=== PATIENT | male | born 1960 | race Two or more races ===

== ENCOUNTER 2025-01-05 10:37 | Inpatient (IN) | payer OTHER, MEDICAID ==
[~2025-01-05] VITALS: Ht 185.4 cm; Wt 91.4 kg
--- NOTE | 2025-01-05 10:48 | ED.PDOC ---
History of Present Illness HPI Comments 64 year old male brought in via EMS presents to the ED with a chief complaint of hypertension onset today. Per EMS, patient was visited by adult protective services, patient was experiencing generalized weakness and 911 was called. Patient states he has not been able to take medication for the past few weeks. Upon ED arrival BP was 215/139. PMHx CVA with LT sided weakness. Denies chest pain, shortness of breath, dizziness, headache, nausea, vomiting, diarrhea. No other symptoms or modifying factors present at this time. Chief Complaint: High Blood Pressure Time Seen by MD: 10:37 Reviewed Notes: Medications, Allergies Allergies: Coded Allergies: NO KNOWN ALLERGIES (Unverified , 01/05/25) Information Source: Patient, Emergency Med Personnel Mode of Arrival: EMS Severity: Moderate Timing: Hours Duration: Since onset Prehospital treatment: None Past Medical History PAST MEDICAL HISTORY: CVA, HTN Surgical History: Denies all surgeries Family History Family History: Reviewed,noncontributory to illness, No family hx of Cancer, No family hx of DM, No family hx of Heart evonne, No family hx of HTN, No family hx ofKidney evonne, No family hx of Liver evonne, No family hx of Lung evonne, No family hx of Stroke Social History Smoker: Non-Smoker Alcohol: Denies ETOH Use Drugs: Denies Drug Use Lives In: Home Constitutional: reports: weakness; denies: chills, diaphoresis, fatigue, fever, malaise, sweats, others EENTM: denies: blurred vision, double vision, ear bleeding, ear discharge, ear drainage, ear pain, ear ringing, eye pain, eye redness, hearing loss, mouth pain, mouth swelling, nasal discharge, nose bleeding, nose congestion, nose pain, photophobia, tearing, throat pain, throat swelling, voice changes, others Respiratory: denies: cough, hemoptysis, orthopnea, SOB at rest, shortness of breath, SOB with excertion, stridor, wheezing, others Cardiovascular: reports: others (Hypertension); denies: chest pain, dizzy spells, diaphoresis, Dyspnea on exertion, edema, irregular heart beat, left arm pain, lightheadedness, palpitations, PND, syncope Gastrointestinal: denies: abdomen distended, abdominal pain, blood streaked bowels, constipated, diarrhea, dysphagia, difficulty swallowing, hematemesis, melena, nausea, poor appetite, poor fluid intake, rectal bleeding, rectal pain, vomiting, others Genitourinary: denies: burning, dysuria, flank pain, frequency, hematuria, incontinence, penile discharge, penile sore, pain, testicle pain, testicle swelling, urgency, others Neurological: reports: weakness; denies: dizziness, fainting, headache, left sided numbness, left sided weakness, numbness, paresthesia, pre-existing deficit, right sided numbness, right sided weakness, seizure, speech problems, tingling, tremors, others Musculoskeletal: denies: back pain, gout, joint pain, joint swelling, muscle pain, muscle stiffness, neck pain, others Integumetry: denies: bruises, change in color, change in hair/nails, dryness, laceration, lesions, lumps, rash, wounds, others Allergic/Immunocompromised: denies: Difficulty Healing, Frequent Infections, Hives, Itching, others Hematologic/Lymphatic: denies: anemia, blood clots, easy bleeding, easy bruising, swollen glands, others Endocrine: denies: excessive hunger, excessive sweating, excessive thirst, excessive urination, flushing, intolerance to cold, intolerance to heat, unexplained weight gain, unexplained weight loss, others Psychiatric: denies: anxiety, bipolar disorder, depression, hopeless, panic disorder, schizophrenia, sleepless, suicidal, others All Other Systems: Reviewed and Negative Physical Exam General Appearance: Moderate Distress, Normal HEENT: Normal ENT Inspection, Pharynx Normal, TMs Normal Neck: Full Range of Motion, Non-Tender, Normal, Normal Inspection Respiratory: Chest Non-Tender, Lungs Clear, No Accessory Muscle Use, No Respiratory Distress, Normal Breath Sounds Cardiovascular: No Edema, No JVD, No Murmur, No Gallop, Normal Peripheral Pulses, Regular Rate/Rhythm Breast Exam: Deferred Gastrointestinal: No Organomegaly, Non Tender, No Pulsatile Mass, Normal Bowel Sounds, Soft Genitalia: Deferred Pelvic: Deferred Rectal: Deferred Extremities: Decreased range of motion (Left upper lower extremity), No calf tenderness, Normal capillary refill, Non-tender, No pedal edema Musculoskeletal : Apperance: Normal Neurologic: Alert, Motor Weakness (Left upper lower extremity), Speech Problem Cerebellar Function: NOT DONE Reflexes: NOT DONE Skin: Dry, Normal Color, Warm Peripheral Pulses: 3+ Radial (R), 3+ Radial (L) Lymphatic: No Adenopathy Was a procedure done? Was a procedure done?: No Differential Dx Considerations may include: Hypertension Electrolyte imbalance X-Ray, Labs, Meds, VS Vital Signs Date Time Temp Pulse Resp B/P (MAP) Pulse Ox O2 Delivery O2 Flow Rate FiO2 01/05/25 16:00 98.3 60 16 163/92 (115) 95 98.3 01/05/25 13:00 98.2 72 12 151/94 (113) 94 98.2 01/05/25 11:14 60 18 96 Room Air* 0 21 01/05/25 11:14 98.5 60 18 144/79 (100) 96 98.5 01/05/25 10:46 64 01/05/25 10:44 98.5 64 18 215/139 (164) 97 98.5 Lab Test 01/05/25 11:04 01/05/25 01:58 Range/Units White Blood Count 4.8 4.4-10.8 10^3/uL Red Blood Count 4.81 4.5-5.90 10^6/uL Hemoglobin 14.9 13.5-17.5 g/dL Hematocrit 44.0 41.0-53.0 % Mean Corpuscular Volume 91.5 80.0-100.0 fL Mean Corpuscular Hemoglobin 30.9 28.0-32.0 pg Mean Corpuscular Hemoglobin Concent 33.8 32.0-36.0 g/dL Red Cell Distribution Width 13.2 11.8-14.3 % Platelet Count 216 140-450 10^3/uL Mean Platelet Volume 8.6 6.9-10.8 fL Neutrophils (%) (Auto) 47.6 37.0-80.0 % Lymphocytes (%) (Auto) 39.0 10.0-50.0 % Monocytes (%) (Auto) 10.4 0.0-12.0 % Eosinophils (%) (Auto) 2.1 0.0-7.0 % Basophils (%) (Auto) 0.9 0.0-2.0 % Neutrophils # (Auto) 2.3 1.6-8.6 10 ^3/uL Lymphocytes # (Auto) 1.9 0.4-5.4 10 ^3/uL Monocytes # (Auto) 0.5 0-1.3 10 ^3/uL Eosinophils # (Auto) 0.1 0-0.8 10 ^3/uL Basophils # (Auto) 0 0-0.2 10 ^3/uL Nucleated Red Blood Cells 0.4 % Sodium Level 138 136-145 mmol/L Potassium Level 3.8 3.5-5.1 mmol/L Chloride Level 105 98-107 mmol/L Carbon Dioxide Level 26 20-31 mmol/L Anion Gap 7 5-15 Blood Urea Nitrogen 12 9-23 mg/dL Creatinine 1.12 0.700-1.30 mg/dL Glomerular Filtration Rate Calc 74 >90 mL/min BUN/Creatinine Ratio 10.7 10.0-20.0 Serum Glucose 83 74-106 mg/dL Calcium Level 9.4 8.7-10.4 mg/dL Troponin I High Sensitivity 39 </=54 ng/L Urine Color Light-yellow Yellow Urine Clarity Clear Clear Urine pH 6.5 5.0-9.0 Urine Specific [place] 1.014 1.001-1.035 Urine Protein 2+ H Negative Urine Ketones Negative Negative Urine Blood Trace H Negative /uL Urine Nitrite Negative Negative Urine Bilirubin Negative Negative Urine Urobilinogen Normal Negative mg/dL Urine Leukocyte Esterase Negative Negative /uL Urine RBC 1 0 - 3 /hpf Urine Microscopic WBC 1 0-3 /HPF Urine Squamous Epithelial Cells Few <5 /hpf Urine Bacteria Few H None Seen /hpf Urine Sperm Present None Seen /hpf Urine Glucose Normal Normal mg/dL Patient history of dementia. Vitals stable. No sign of injury. Blood pressure elevated. Hemoglobin within normal limits. Reviewed his history. Urinalysis shows proteinuria. Microalbuminuria. Cardiac marker within normal limits. History of CVA affecting his speech. Continues to have weakness. Possibly will need MRI. Family states that he has been feeling weak. Has had many CVS. His has left-sided got affected. Explained to the patient. Continue to monitor. EKG reviewed does not show any acute process. Time of 1ST Reevaluation: 11:07 Reevaluation 1ST: Unchanged Patient Education/Counseling: Diagnosis, Treatment, Prognosis Family Education/Counseling: No Family Present Departure 1 Departure Time of Disposition: 11:41 Impression: Primary Impression: TIA (transient ischemic attack) Additional Impression: Hypertensive urgency Disposition: ADMITTED INPATIENT Admit to: Med Surg Condition: Guarded Critical Care Note Critical Care Time?: Yes (45 min-critical care time only) Stability Stability form required: No Heart Score Heart Score: Heart Score Response (Comments) Value History Slightly Suspicious 0 EKG Normal 0 Age 45-64 1 Risk Factors >3 or Hx ASHD 2 Troponin Normal limit 0 Total 3 I personally scribed for MELIZA MUÑOZ MD ([email or web address]) on 01/05/25 at 10:48. Electronically submitted by Awa Combs ([email or web address]). MELIZA MUÑOZ MD Jan 05, 2025 10:48
[2025-01-05 11:14] VITALS: PULSE 60; RESP 18; O2SAT 96
[2025-01-05 11:31] LABS: Basophils # (auto) 0 10 ^3/uL (0-0.2); Basophils % (auto) 0.9 % (0.0-2.0); Eosinophils # (auto) 0.1 10 ^3/uL (0-0.8); Eosinophils % (auto) 2.1 % (0.0-7.0); Hemoglobin 14.9 g/dL (13.5-17.5); Lymphocytes # (auto) 1.9 10 ^3/uL (0.4-5.4); Mean Corpuscular Hemoglobin 30.9 pg (28.0-32.0); Mean Corpuscular Hgb Conc. 33.8 g/dL (32.0-36.0); Mean Corpuscular Volume 91.5 fL (80.0-100.0); Monocytes # (auto) 0.5 10 ^3/uL (0-1.3); Monocytes % (auto) 10.4 % (0.0-12.0); Neutrophils # (auto) 2.3 10 ^3/uL (1.6-8.6); Neutrophils % (auto) 47.6 % (37.0-80.0); Nucleated Red Blood Cells % 0.4 %; Platelet Count (auto) 216 10^3/uL (140-450); Red Blood Cells 4.81 10^6/uL (4.5-5.90); Red Cell Distribution Width 13.2 % (11.8-14.3); White Blood Cell 4.8 10^3/uL (4.4-10.8)
[2025-01-05 11:43] LABS: Anion Gap 7 (5-15); Carbon Dioxide 26 mmol/L (20-31); Chloride 105 mmol/L (98-107); Potassium 3.8 mmol/L (3.5-5.1); Sodium 138 mmol/L (136-145)
[2025-01-05 11:44] LABS: Calcium 9.4 mg/dL (8.7-10.4)
[2025-01-05 11:48] LABS: Urine Bacteria FEW /hpf (None Seen); Urine Blood TRACE /uL (Negative); Urine Clarity Clear (Clear); Urine Color Light-Yellow (Yellow); Urine Protein, UAD 2+ (Negative); Urine Specific Gravity 1.014 (1.001-1.035); Urine Sperm PRESENT /hpf (None Seen); Urine Squamous Epithelial Cell FEW /hpf (<5); Urine Urobilinogen Normal (Negative); Urine WBC 1 /HPF (0-3); Urine pH 6.5 (5.0-9.0)
[2025-01-05 11:49] LABS: BUN/Creatinine Ratio 10.7 (10.0-20.0); Blood Urea Nitrogen 12 mg/dL (9-23); Glucose 83 mg/dL (74-106)
--- NOTE | 2025-01-05 12:13 | ECG ---
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
--- NOTE | 2025-01-05 17:57 | DVH ---
EXAM: CT HEAD WITHOUT CONTRAST INDICATION: tia TECHNIQUE: CT of the head without intravenous contrast. Radiation Dose : 1. Head: CT Dose: CTDI volume is 64.2 mGy. Dose-length product is 1264.7 mGy*cm The dose indicators for CT are the volume Computed Tomography (CT) Dose Index (CTDIvol) and the Dose Length Product (DLP), and are measured in units of mGy and mGy-cm, respectively. These indicators are not patient dose, but values generated from the CT scanner acquisition factors. The report includes radiation exposure data for exposures received during this examination. COMPARISON: None FINDINGS: There is an old infarct of the deep right temporal lobe. Mild dilatation of the right lateral ventric le compensatory in nature. Encephalomalacia seen in both frontal lobes, right greater than left. There is no evidence of acute intracranial hemorrhage, extra-axial collection, mass effect, midline s hift, herniation or hydrocephalus. The ventricles, sulci and cisterns are age appropriate. The stone-white differentiation is intact. Patchy periventricular and subcortical white matter hypoattenuation is nonspecific but may be related to small vessel ischemic disease. The visualized paranasal sinuses and mastoid air cells are clear. The surrounding soft tissues and osseous structures are unremarkable. IMPRESSION: 1. Old right deep temporal lobe infarct.Moderately Severe small-vessel ischemic changes both cerebral hemispheres. Bifrontal old encephalomalacia Radiation optimization: All CT scans at this facility use at least one of these dose optimization jalil hniques: automated exposure control mA and/or kV adjustment per patient size (includes targeted exam s where dose is matched to clinical indication) or iterative reconstruction.
[2025-01-05] MEDS ORDERED: ACETAMINOPHEN 325 MG TAB PO PRN (19:00)
[2025-01-05] MEDS ORDERED: ONDANSETRON HCL 4 MG/2 ML VIAL IV PRN (19:00)
[2025-01-05 20:43] VITALS: PULSE 66; RESP 19; O2SAT 94
[2025-01-05 21:59] VITALS: BP 159/89; PULSE 55; RESP 16; TEMP 97.8; O2SAT 94
--- NOTE | 2025-01-05 22:34 | DVHHP2 ---
History of Present Illness Reason for Visit: Dizziness History of Present Illness 64-year-old presents for evaluation of dizziness. Patient reports a one day history of dizziness. Adult protective Services were doing a wellness check in the patient a noted his blood pressure being over 200. EMS was called to bring the patient in for evaluation. Patient has a history of CVA with left-sided deficits. Patient reports not taking his medications over the past three weeks. Denies chest pain or shortness for breath. No other acute complaints reported. Past Medical History Hypertension and CVA Past Surgical History None Family History Noncontributory Smoke: No ALCOHOL: none Drugs: None Review of Systems Review of Systems Review of systems are currently negative otherwise addressed in HPI. Allergies: Coded Allergies: NO KNOWN ALLERGIES (Unverified , 01/05/25) Medications Current Medications Medications Dose Ordered Sig/Jennifer Route Start Time Stop Time Status Last Admin Dose Admin Aspirin 81 mg DAILY PO 01/06/25 10:00 Atorvastatin Calcium 10 mg HS PO 01/05/25 22:00 Lisinopril 10 mg DAILY PO 01/06/25 10:00 Clonidine HCl 0.1 mg Q6HP PRN PO 01/05/25 19:00 Ondansetron HCl 4 mg Q4HP PRN IV 01/05/25 19:00 Enoxaparin Sodium 40 mg DAILY SC 01/06/25 10:00 Acetaminophen 650 mg Q6HP PRN PO 01/05/25 19:00 Exam Vital Signs Vital Signs Date Time Temp Pulse Resp B/P (MAP) Pulse Ox O2 Delivery O2 Flow Rate FiO2 01/05/25 21:41 98.8 68 16 144/88 (106) 97 98.8 01/05/25 20:43 Room Air* 0 21 Exam Gen: 64-year-old male in mild distress Skin: Warm, dry, normal color and texture, no rash. HEENT: Normocephalic atraumatic, mucous membranes moist and pink. Neck: Cervical and supraclavicular nodes normal without enlargement, trachea is midline, thyroid gland is normal without masses. Pulmonary: Clear to auscultation and percussion bilaterally. Cardiac: Regular rate and rhythm. No murmur Abdomen: Soft, nontender, nondistended, bowel sounds present all 4 quadrants, no guarding, no rigidity, no organomegaly. Extremities: No cyanosis, clubbing, no edema Neuro: Cranial nerves II through XII grossly intact, normal affect and speech, left-sided deficits from previous CVA Labs/Xrays ORDERING PHYSICIAN: MELIZA MUÑOZ MD PROCEDURE(s): HWOCT - HEAD WITHOUT CONTRAST REASON: tia ORDER NUMBER(s): [id number], ACCESSION NUMBER(s): [id number] EXAM: CT HEAD WITHOUT CONTRAST INDICATION: tia TECHNIQUE: CT of the head without intravenous contrast. Radiation Dose : 1. Head: CT Dose: CTDI volume is 64.2 mGy. Dose-length product is 1264.7 mGy*cm The dose indicators for CT are the volume Computed Tomography (CT) Dose Index (CTDIvol) and the Dose Length Product (DLP), and are measured in units of mGy and mGy-cm, respectively. These indicators are not patient dose, but values generated from the CT scanner acquisition factors. The report includes radiation exposure data for exposures received during this examination. COMPARISON: None FINDINGS: There is an old infarct of the deep right temporal lobe. Mild dilatation of the right lateral ventricle compensatory in nature. Encephalomalacia seen in both frontal lobes, right greater than left. There is no evidence of acute intracranial hemorrhage, extra-axial collection, mass effect, midline shift, herniation or hydrocephalus. The ventricles, sulci and cisterns are age appropriate. The stone-white differentiation is intact. Patchy periventricular and subcortical white matter hypoattenuation is nonspecific but may be related to small vessel ischemic disease. The visualized paranasal sinuses and mastoid air cells are clear. The surrounding soft tissues and osseous structures are unremarkable. IMPRESSION: 1. Old right deep temporal lobe infarct.Moderately Severe small-vessel ischemic changes both cerebral hemispheres. Bifrontal old encephalomalacia Radiation optimization: All CT scans at this facility use at least one of these dose optimization techniques: automated exposure control mA and/or kV adjustment per patient size (includes targeted exams where dose is matched to clinical indication) or iterative reconstruction. Labs Test 01/05/25 11:04 01/05/25 01:58 Range/Units White Blood Count 4.8 4.4-10.8 10^3/uL Red Blood Count 4.81 4.5-5.90 10^6/uL Hemoglobin 14.9 13.5-17.5 g/dL Hematocrit 44.0 41.0-53.0 % Mean Corpuscular Volume 91.5 80.0-100.0 fL Mean Corpuscular Hemoglobin 30.9 28.0-32.0 pg Mean Corpuscular Hemoglobin Concent 33.8 32.0-36.0 g/dL Red Cell Distribution Width 13.2 11.8-14.3 % Platelet Count 216 140-450 10^3/uL Mean Platelet Volume 8.6 6.9-10.8 fL Neutrophils (%) (Auto) 47.6 37.0-80.0 % Lymphocytes (%) (Auto) 39.0 10.0-50.0 % Monocytes (%) (Auto) 10.4 0.0-12.0 % Eosinophils (%) (Auto) 2.1 0.0-7.0 % Basophils (%) (Auto) 0.9 0.0-2.0 % Neutrophils # (Auto) 2.3 1.6-8.6 10 ^3/uL Lymphocytes # (Auto) 1.9 0.4-5.4 10 ^3/uL Monocytes # (Auto) 0.5 0-1.3 10 ^3/uL Eosinophils # (Auto) 0.1 0-0.8 10 ^3/uL Basophils # (Auto) 0 0-0.2 10 ^3/uL Nucleated Red Blood Cells 0.4 % Sodium Level 138 136-145 mmol/L Potassium Level 3.8 3.5-5.1 mmol/L Chloride Level 105 98-107 mmol/L Carbon Dioxide Level 26 20-31 mmol/L Anion Gap 7 5-15 Blood Urea Nitrogen 12 9-23 mg/dL Creatinine 1.12 0.700-1.30 mg/dL Glomerular Filtration Rate Calc 74 >90 mL/min BUN/Creatinine Ratio 10.7 10.0-20.0 Serum Glucose 83 74-106 mg/dL Calcium Level 9.4 8.7-10.4 mg/dL Troponin I High Sensitivity 39 </=54 ng/L Urine Color Light-yellow Yellow Urine Clarity Clear Clear Urine pH 6.5 5.0-9.0 Urine Specific [place] 1.014 1.001-1.035 Urine Protein 2+ H Negative Urine Ketones Negative Negative Urine Blood Trace H Negative /uL Urine Nitrite Negative Negative Urine Bilirubin Negative Negative Urine Urobilinogen Normal Negative mg/dL Urine Leukocyte Esterase Negative Negative /uL Urine RBC 1 0 - 3 /hpf Urine Microscopic WBC 1 0-3 /HPF Urine Squamous Epithelial Cells Few <5 /hpf Urine Bacteria Few H None Seen /hpf Urine Sperm Present None Seen /hpf Urine Glucose Normal Normal mg/dL Assessment/Plan Assessment/Plan Assessment Hypertensive urgency History of CVA with left-sided deficits Plan admit the patient to Med surge to the hospitalist Echocardiogram pending Resume home medications Continue treatment per orders. Plan discussed with: Patient My Orders Orders - GALI MARTIN Procedure Category Date Status Time Aspirin Tablet PHA 01/06/25 In Process 10:00 Atorvastatin (Lipitor) PHA 01/05/25 In Process 22:00 Lisinopril Tablet PHA 01/06/25 In Process (Zestril Tablet) 10:00 Clonidine Hcl Tablet PHA 01/05/25 In Process (Catapres Tablet) 19:00 Admit ADMIT 01/05/25 Transmitted 18:53 Ondansetron Hcl PHA 01/05/25 In Process (Zofran) 19:00 Enoxaparin Sodium PHA 01/06/25 In Process (Lovenox) 10:00 Cardiac DIET 01/06/25 Transmitted Diet-2gna,Lofat,Lochol Breakfast Echo 2d Mode Cardiac US 01/05/25 Logged DOP 18:53 Condition: Stable KRISTIN 01/05/25 In Process 18:53 Acetaminophen Tablet PHA 01/05/25 In Process (Tylenol Tablet) 19:00 Bedrest With Bathroom KRISTIN 01/05/25 In Process Privileg 18:53 Basic Metabolic Panel LAB 01/06/25 Verified 04:00 Date of Service: Jan 05, 2025 Billing Provider: GALI MARTIN Common Visit Codes: [id number] INP/OBS CARE (HIGH) GALI MARTIN Jan 05, 2025 22:34
[2025-01-05] MEDS: ATORVASTATIN 20 MG TAB PO SCH (22:38)
[2025-01-05 22:48] LABS: Triglycerides 135 mg/dL (< 150)
[2025-01-05 22:56] LABS: Cholesterol 221 mg/dL (< 200); HDL Cholesterol 37 mg/dL (40-59); LDL Cholesterol 157 mg/dL (< 100)
[2025-01-05] MEDS: cloNIDine HCL 0.1 MG TAB PO PRN (23:54)
[2025-01-06 01:04] VITALS: BP 158/85; PULSE 61; RESP 17; TEMP 98; O2SAT 93
[2025-01-06 05:00] VITALS: BP 125/62; PULSE 51; RESP 17; TEMP 97.6; O2SAT 95
[2025-01-06 06:41] LABS: Chloride 105 mmol/L (98-107); Potassium 3.8 mmol/L (3.5-5.1); Sodium 137 mmol/L (136-145)
[2025-01-06 06:43] LABS: Anion Gap 6 (5-15); Calcium 9.2 mg/dL (8.7-10.4); Carbon Dioxide 26 mmol/L (20-31)
[2025-01-06 06:48] LABS: BUN/Creatinine Ratio 8.5 (10.0-20.0); Blood Urea Nitrogen 10 mg/dL (9-23); Glucose 102 mg/dL (74-106)
[2025-01-06 09:00] VITALS: BP 122/62; PULSE 53; RESP 20; TEMP 97.3; O2SAT 93
[2025-01-06] MEDS: ENOXAPARIN SOD 40 MG/0.4 ML SYRINGE SC SCH (11:52)
[2025-01-06] MEDS: ASPirin 81 mg TAB PO SCH (11:53)
[2025-01-06] MEDS: LISINOPRIL 5 MG TAB PO SCH (11:53)
[2025-01-06 13:00] VITALS: BP 128/71; PULSE 65; RESP 20; TEMP 98.1; O2SAT 96
--- NOTE | 2025-01-06 14:20 | DVHPN2 ---
Subjective 64 year old male with h/o old CVA w left sided paralysis, h/o seizures, HTN, dyslipidemia came with high BP Apparently he ran out of his medications He said he take 5 different medications for HTN and seizures, he doesn't know the names Changes from previous H/P or p: Changes Objective Vitals Vital Signs Date Time Temp Pulse Resp B/P (MAP) Pulse Ox O2 Delivery O2 Flow Rate FiO2 01/06/25 13:00 98.1 65 20 128/71 (90) 96 98.1 01/06/25 08:15 Room Air* 0 21 Intake/Output Intake and Output 01/06/25 07:00 Intake Total 200 ml Output Total 300 ml Balance -100 ml Intake Oral 200 ml Output Urine Total 300 ml General Appearance: Alert, Oriented X3, Cooperative, No acute distress Lungs: Clear to auscultation, Normal air movement Cardiovascular: Regular rate, Normal S1, Normal S2 Abdomen: Normal bowel sounds, Soft, No tenderness Extremities: No edema Medications Current Medications Medications Dose Ordered Sig/Jennifer Route Start Time Stop Time Status Last Admin Dose Admin Aspirin 81 mg DAILY PO 01/06/25 10:00 01/06/25 11:53 81 MG Atorvastatin Calcium 10 mg HS PO 01/05/25 22:00 01/05/25 22:38 10 MG Lisinopril 10 mg DAILY PO 01/06/25 10:00 01/06/25 11:53 10 MG Clonidine HCl 0.1 mg Q6HP PRN PO 01/05/25 19:00 01/05/25 23:54 0.1 MG Ondansetron HCl 4 mg Q4HP PRN IV 01/05/25 19:00 Enoxaparin Sodium 40 mg DAILY SC 01/06/25 10:00 01/06/25 11:52 40 MG Acetaminophen 650 mg Q6HP PRN PO 01/05/25 19:00 Laboratory Results Laboratory Tests 01/05/25 11:04 01/06/25 06:01 Chemistry Test 01/06/25 06:01 Calcium Level 9.2 mg/dL (8.7-10.4) Urinalysis Test 01/05/25 01:58 Urine Color Light-yellow (Yellow) Urine Clarity Clear (Clear) Urine pH 6.5 (5.0-9.0) Urine Specific [place] 1.014 (1.001-1.035) Urine Protein 2+ (Negative) H Urine Ketones Negative (Negative) Urine Blood Trace /uL (Negative) H Urine Nitrite Negative (Negative) Urine Bilirubin Negative (Negative) Urine Urobilinogen Normal mg/dL (Negative) Urine Leukocyte Esterase Negative /uL (Negative) Urine RBC 1 /hpf (0 - 3) Urine Microscopic WBC 1 /HPF (0-3) Urine Squamous Epithelial Cells Few /hpf (<5) Urine Bacteria Few /hpf (None Seen) H Urine Sperm Present /hpf (None Seen) Urine Glucose Normal mg/dL (Normal) Assessment/Plan Assessment/Plan Hypertensive emergency HTN 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 Seizures Mixed hyperlipidemia PLAN: Get the home meds Aspirin Lipitor Lisinopril Physical therapy Full code Advanced directives discussed x 15 minutes Plan discussed with: Patient Date of Service: Jan 06, 2025 Billing Provider: ROMAN LAZCANO MD Common Visit Codes: [id number] INP/OBS CARE(HIGH) Secondary Visit Codes: [id number] CARE PLAN 30 MINUTES ROMAN LAZCANO MD Jan 06, 2025 14:20
[2025-01-06 17:00] VITALS: BP 131/65; PULSE 60; RESP 18; TEMP 98.2; O2SAT 94
[2025-01-06 21:01] VITALS: BP 105/54; PULSE 58; RESP 20; TEMP 98.2; O2SAT 93
[2025-01-07 01:00] VITALS: BP 106/56; PULSE 58; RESP 19; TEMP 97.6; O2SAT 98
[2025-01-07 05:00] VITALS: BP 111/67; PULSE 58; RESP 19; TEMP 97.7; O2SAT 95
[2025-01-07 08:36] VITALS: BP 135/71; PULSE 63; RESP 18; TEMP 98; O2SAT 94
[2025-01-07 13:23] VITALS: BP 121/54; PULSE 61; RESP 18; TEMP 97.9; O2SAT 94
[2025-01-07] MEDS ORDERED: hydrALAZINE HCL 20 MG/ML VL IV PRN (14:15)
--- NOTE | 2025-01-07 15:56 | DVHPN2 ---
Subjective Nausea medication no new complaints except for weakness Changes from previous H/P or p: Changes Objective Vitals Vital Signs Date Time Temp Pulse Resp B/P (MAP) Pulse Ox O2 Delivery O2 Flow Rate FiO2 01/07/25 13:23 97.9 61 18 121/54 (76) 94 97.9 01/07/25 08:10 Room Air* 0 21 Intake/Output Intake and Output 01/07/25 07:00 Intake Total 900 ml Output Total 1350 ml Balance -450 ml Intake Oral 900 ml Output Urine Total 1350 ml # Bowel Movements 1 General Appearance: Alert, Oriented X3, Cooperative, No acute distress Lungs: Clear to auscultation, Normal air movement Cardiovascular: Regular rate, Normal S1, Normal S2 Abdomen: Normal bowel sounds, Soft, No tenderness Extremities: No edema Medications Current Medications Medications Dose Ordered Sig/Jennifer Route Start Time Stop Time Status Last Admin Dose Admin Aspirin 81 mg DAILY PO 01/06/25 10:00 01/07/25 10:03 81 MG Atorvastatin Calcium 10 mg HS PO 01/05/25 22:00 01/06/25 21:00 10 MG Lisinopril 10 mg DAILY PO 01/06/25 10:00 01/07/25 10:03 10 MG Ondansetron HCl 4 mg Q4HP PRN IV 01/05/25 19:00 Enoxaparin Sodium 40 mg DAILY SC 01/06/25 10:00 01/07/25 10:04 40 MG Acetaminophen 650 mg Q6HP PRN PO 01/05/25 19:00 Hydralazine HCl 10 mg Q6HP PRN IV 01/07/25 14:15 Laboratory Results Laboratory Tests 01/05/25 11:04 01/06/25 06:01 Urinalysis Test 01/05/25 01:58 Urine Color Light-yellow (Yellow) Urine Clarity Clear (Clear) Urine pH 6.5 (5.0-9.0) Urine Specific [place] 1.014 (1.001-1.035) Urine Protein 2+ (Negative) H Urine Ketones Negative (Negative) Urine Blood Trace /uL (Negative) H Urine Nitrite Negative (Negative) Urine Bilirubin Negative (Negative) Urine Urobilinogen Normal mg/dL (Negative) Urine Leukocyte Esterase Negative /uL (Negative) Urine RBC 1 /hpf (0 - 3) Urine Microscopic WBC 1 /HPF (0-3) Urine Squamous Epithelial Cells Few /hpf (<5) Urine Bacteria Few /hpf (None Seen) H Urine Sperm Present /hpf (None Seen) Urine Glucose Normal mg/dL (Normal) Assessment/Plan Assessment/Plan Hypertensive emergency HTN 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 Seizures Mixed hyperlipidemia PLAN: Get the home meds Aspirin Lipitor Lisinopril Physical therapy Full code Advanced directives discussed x 15 minutes 01/07/2025: Physical therapy evaluation Aspirin Lisinopril Lovenox Lipitor Plan discussed with: Patient My Orders Orders - ROMAN LAZCANO MD Procedure Category Date Status Time Hydralazine Injection PHA 01/07/25 In Process (Apresoline Inject 14:15 Pt Request For Service PT 01/07/25 Logged 14:14 Date of Service: Jan 07, 2025 Billing Provider: ROMAN LAZCANO MD Common Visit Codes: [id number] INP/OBS CARE(HIGH) ROMAN LAZCANO MD Jan 07, 2025 15:56
[2025-01-07 16:42] VITALS: BP 129/61; PULSE 72; RESP 22; TEMP 97.9; O2SAT 100
[2025-01-07 21:00] VITALS: BP 107/49; PULSE 62; RESP 19; TEMP 97.9; O2SAT 95
[2025-01-08 05:00] VITALS: BP 110/63; PULSE 70; RESP 17; TEMP 97.5; O2SAT 94
[2025-01-08 09:17] VITALS: BP 110/59; PULSE 60; RESP 16; TEMP 97.6; O2SAT 94
--- NOTE | 2025-01-08 11:04 | DVHPN2 ---
Subjective no new complaints except for weakness Changes from previous H/P or p: Changes Objective Vitals Vital Signs Date Time Temp Pulse Resp B/P (MAP) Pulse Ox O2 Delivery O2 Flow Rate FiO2 01/08/25 09:40 110/57 01/08/25 09:17 97.6 60 16 94 97.6 01/07/25 20:00 Room Air* 0 21 Intake/Output Intake and Output 01/08/25 07:00 Intake Total 1350 ml Output Total 1700 ml Balance -350 ml Intake Oral 1350 ml Output Urine Total 1700 ml # Bowel Movements 1 General Appearance: Alert, Oriented X3, Cooperative, No acute distress Lungs: Clear to auscultation, Normal air movement Cardiovascular: Regular rate, Normal S1, Normal S2 Abdomen: Normal bowel sounds, Soft, No tenderness Extremities: No edema Medications Current Medications Medications Dose Ordered Sig/Jennifer Route Start Time Stop Time Status Last Admin Dose Admin Aspirin 81 mg DAILY PO 01/06/25 10:00 01/08/25 09:40 81 MG Atorvastatin Calcium 10 mg HS PO 01/05/25 22:00 01/07/25 23:40 10 MG Lisinopril 10 mg DAILY PO 01/06/25 10:00 01/08/25 09:40 10 MG Ondansetron HCl 4 mg Q4HP PRN IV 01/05/25 19:00 Enoxaparin Sodium 40 mg DAILY SC 01/06/25 10:00 01/08/25 09:40 40 MG Acetaminophen 650 mg Q6HP PRN PO 01/05/25 19:00 Hydralazine HCl 10 mg Q6HP PRN IV 01/07/25 14:15 Laboratory Results Laboratory Tests 01/05/25 11:04 01/06/25 06:01 Urinalysis Test 01/05/25 01:58 Urine Color Light-yellow (Yellow) Urine Clarity Clear (Clear) Urine pH 6.5 (5.0-9.0) Urine Specific [place] 1.014 (1.001-1.035) Urine Protein 2+ (Negative) H Urine Ketones Negative (Negative) Urine Blood Trace /uL (Negative) H Urine Nitrite Negative (Negative) Urine Bilirubin Negative (Negative) Urine Urobilinogen Normal mg/dL (Negative) Urine Leukocyte Esterase Negative /uL (Negative) Urine RBC 1 /hpf (0 - 3) Urine Microscopic WBC 1 /HPF (0-3) Urine Squamous Epithelial Cells Few /hpf (<5) Urine Bacteria Few /hpf (None Seen) H Urine Sperm Present /hpf (None Seen) Urine Glucose Normal mg/dL (Normal) Assessment/Plan Assessment/Plan Hypertensive emergency HTN 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 Seizures Mixed hyperlipidemia PLAN: Get the home meds Aspirin Lipitor Lisinopril Physical therapy Full code Advanced directives discussed x 15 minutes 01/07/2025: Physical therapy evaluation Aspirin Lisinopril Lovenox Lipitor 01/08/2025: We tried to contact his sister to get his home medications however the phone number listed is nonfunctional The patient is stable Continue physical evaluation Continue aspirin lisinopril and Lovenox and Lipitor The rest of the management will depend on the hospital course Plan discussed with: Patient My Orders Orders - ROMAN LAZCANO MD Procedure Category Date Status Time Hydralazine Injection PHA 01/07/25 In Process (Apresoline Inject 14:15 Pt Request For Service PT 01/07/25 Logged 14:14 Date of Service: Jan 08, 2025 Billing Provider: ROMAN LAZCANO MD Common Visit Codes: [id number] INP/OBS CARE(HIGH) ROMAN LAZCANO MD Jan 08, 2025 11:04
[2025-01-08 13:30] VITALS: BP 129/70; PULSE 57; RESP 18; TEMP 97.8; O2SAT 93
--- NOTE | 2025-01-08 17:19 | DVHSR ---
APPROVED REPORT EXAM: Two-dimensional and M-mode echocardiogram with Doppler and color Doppler. Blood Pressure: 125/62 mmHg INDICATION Hypertension RISK FACTORS Height: 73, Weight: 196 DIMENSIONS LVDd (3.8-5.7cm)LA (2D)4.4 (1.9-4.0cm)Aortic Root4.2 (2.0-3.7cm) LVDs (2.5-4.0cm)LA (MM) (1.9-4.0cm)Aortic Cusp Exc2.2 (1.5-2.0cm) EF (%) 61.0 (55-70%)Rt. Atrium3.6 (1.9-4.0cm)Asc. Aorta cm Mitral Valve MitralMitral Stenosis E wave0.49m/sMV Mean GR.mmHg A wave0.96m/sMV Peak GR.mmHg E/A ratio0.52D MVAcm2 DECEL [id number] 1/2 [id number] IVRTmsDop MVA3.21cm2 Aortic Valve Aortic ValveAortic Stenosis V11.03m/Melinda Mean GR.5mmHg V21.51m/Melinda Peak GR.9mmHg LVOT Diameter2.1 (1.8-2.4cm)Doppler AVA2.36cm2 AI P 1/2 Kkya191.46ms Pulmonic Valve V21.02m/s Conclusion Technically good study. Severe concentric LVH. Notable increased septal thickness. Aortic root is notably enlarged with enl argement of the sinuses of Valsalva. Valves appear to be structurally normal. There does not appear to be systolic anterior motion of the mitral leaflet. Tricuspid and pulmonic normal. The aortic valve is normal. Left ventricular function is preserved. EF is 75% with impaired diastolic relaxation. Normal RV fun ction. Moderate aortic insufficiency. Mild tricuspid and mitral insufficiency.
[2025-01-08 17:27] VITALS: BP 120/58; PULSE 60; RESP 17; TEMP 97.9; O2SAT 96
[2025-01-08 20:25] VITALS: RESP 18; O2SAT 97
[2025-01-08 21:00] VITALS: BP 120/63; PULSE 57; RESP 16; TEMP 98.3; O2SAT 93
[2025-01-09] VITALS (8 sets, daily range): BP systolic 115–128; BP diastolic 58–70; PULSE 56–84; RESP 16–18; TEMP 97.4–97.9; O2SAT 93–97
--- NOTE | 2025-01-09 19:31 | DVHPN2 ---
Subjective Patient denies any symptoms. Reviewed: Care Plan, H&P, Labs, Medications, Previous Orders Changes from previous H/P or p: No Changes General: Per HPI Objective Vitals Vital Signs Date Time Temp Pulse Resp B/P (MAP) Pulse Ox O2 Delivery O2 Flow Rate FiO2 01/09/25 16:55 97.8 60 16 119/65 (83) 94 97.8 01/09/25 08:02 Room Air* 0 21 Intake/Output Intake and Output 01/09/25 06:59 Intake Total 400 ml Output Total 2050 ml Balance -1650 ml Intake Oral 400 ml Output Urine Total 2050 ml # Bowel Movements 1 General Appearance: Alert, Oriented X3, Cooperative, No acute distress HEENT: PERRLA Lungs: Clear to auscultation, Normal air movement Cardiovascular: Regular rate, Normal S1, Normal S2 Abdomen: Normal bowel sounds, Soft, No tenderness Extremities: No edema, Other (Left arm contracture) Skin: Dry, Intact Medications Current Medications Medications Dose Ordered Sig/Jennifer Route Start Time Stop Time Status Last Admin Dose Admin Aspirin 81 mg DAILY PO 01/06/25 10:00 01/09/25 08:51 81 MG Atorvastatin Calcium 10 mg HS PO 01/05/25 22:00 01/08/25 21:12 10 MG Lisinopril 10 mg DAILY PO 01/06/25 10:00 01/09/25 08:50 10 MG Ondansetron HCl 4 mg Q4HP PRN IV 01/05/25 19:00 Enoxaparin Sodium 40 mg DAILY SC 01/06/25 10:00 01/09/25 08:50 40 MG Acetaminophen 650 mg Q6HP PRN PO 01/05/25 19:00 Hydralazine HCl 10 mg Q6HP PRN IV 01/07/25 14:15 Laboratory Results Laboratory Tests 01/05/25 11:04 01/06/25 06:01 Urinalysis Test 01/05/25 01:58 Urine Color Light-yellow (Yellow) Urine Clarity Clear (Clear) Urine pH 6.5 (5.0-9.0) Urine Specific [place] 1.014 (1.001-1.035) Urine Protein 2+ (Negative) H Urine Ketones Negative (Negative) Urine Blood Trace /uL (Negative) H Urine Nitrite Negative (Negative) Urine Bilirubin Negative (Negative) Urine Urobilinogen Normal mg/dL (Negative) Urine Leukocyte Esterase Negative /uL (Negative) Urine RBC 1 /hpf (0 - 3) Urine Microscopic WBC 1 /HPF (0-3) Urine Squamous Epithelial Cells Few /hpf (<5) Urine Bacteria Few /hpf (None Seen) H Urine Sperm Present /hpf (None Seen) Urine Glucose Normal mg/dL (Normal) Labs and/or images reviewed: Labs reviewed by me, Image(s) reviewed by me Assessment/Plan Assessment/Plan Impression: -history of CVA -hypertensive crisis -dyslipidemia -questionable dementia Plan: -had a discussion with the patient who states that he lives with a sister and mother. According to the primary nurse, the patient's mother has . Notation reveals that there issues receiving home medications from sister. Also discussed by primary nurse that the patient will not be able to be cared for by sister. Reviewed social service notes. Apparently, they assessed the patient to be alert and oriented x4. I questioned this assessment. -social service for discharge planning. Reviewed APS recommendations. -continue antihypertensives -continue DVT prophylaxis -continue statin -physical therapy Total time spent with patient discussing and formulating plan of care: 35 minutes. This medical document was created using an electronic medical record system with [employer] dictation system. Although this document has been carefully reviewed, there may still be some phonetic and typographical errors. These areas are purely typographical due to imperfections of the software programs, and do not reflect any compromise in the patient's medical care. Plan discussed with: Patient, Other (RN) Date of Service: Jan 09, 2025 Billing Provider: JEANNIE MERA NP Common Visit Codes: [id number] INP/OBS CARE(HIGH) JEANNIE MERA NP Jan 09, 2025 19:31
[2025-01-10] VITALS (8 sets, daily range): BP systolic 112–139; BP diastolic 64–80; PULSE 57–71; RESP 16–18; TEMP 97.5–98.1; O2SAT 94–97
--- NOTE | 2025-01-10 12:52 | DVHPN2 ---
Subjective Patient reports that he was ready to be discharged home and to call his mother. Apparently, the patient's mother quite some time ago. Reviewed: Care Plan, H&P, Labs, Medications, Previous Orders Changes from previous H/P or p: No Changes General: Per HPI Objective Vitals Vital Signs Date Time Temp Pulse Resp B/P (MAP) Pulse Ox O2 Delivery O2 Flow Rate FiO2 01/10/25 10:42 139/80 01/10/25 08:55 97.5 71 16 94 97.5 01/10/25 08:00 Room Air* 0 21 Intake/Output Intake and Output 01/10/25 07:00 Intake Total 1183 ml Output Total 1630 ml Balance -447 ml Intake Oral 1183 ml Output Urine Total 1630 ml # Bowel Movements 1 General Appearance: Alert, Oriented X3, Cooperative, No acute distress HEENT: PERRLA Lungs: Clear to auscultation, Normal air movement Cardiovascular: Regular rate, Normal S1, Normal S2 Abdomen: Normal bowel sounds, Soft, No tenderness Extremities: No edema, Other (Left arm contracture) Skin: Dry, Intact Medications Current Medications Medications Dose Ordered Sig/Jennifer Route Start Time Stop Time Status Last Admin Dose Admin Aspirin 81 mg DAILY PO 01/06/25 10:00 01/10/25 10:43 81 MG Atorvastatin Calcium 10 mg HS PO 01/05/25 22:00 01/09/25 21:33 10 MG Lisinopril 10 mg DAILY PO 01/06/25 10:00 01/10/25 10:42 10 MG Ondansetron HCl 4 mg Q4HP PRN IV 01/05/25 19:00 Enoxaparin Sodium 40 mg DAILY SC 01/06/25 10:00 01/10/25 10:43 40 MG Acetaminophen 650 mg Q6HP PRN PO 01/05/25 19:00 Hydralazine HCl 10 mg Q6HP PRN IV 01/07/25 14:15 Laboratory Results Laboratory Tests 01/05/25 11:04 01/06/25 06:01 Urinalysis Test 01/05/25 01:58 Urine Color Light-yellow (Yellow) Urine Clarity Clear (Clear) Urine pH 6.5 (5.0-9.0) Urine Specific [place] 1.014 (1.001-1.035) Urine Protein 2+ (Negative) H Urine Ketones Negative (Negative) Urine Blood Trace /uL (Negative) H Urine Nitrite Negative (Negative) Urine Bilirubin Negative (Negative) Urine Urobilinogen Normal mg/dL (Negative) Urine Leukocyte Esterase Negative /uL (Negative) Urine RBC 1 /hpf (0 - 3) Urine Microscopic WBC 1 /HPF (0-3) Urine Squamous Epithelial Cells Few /hpf (<5) Urine Bacteria Few /hpf (None Seen) H Urine Sperm Present /hpf (None Seen) Urine Glucose Normal mg/dL (Normal) Labs and/or images reviewed: Labs reviewed by me, Image(s) reviewed by me Assessment/Plan Assessment/Plan Impression: -history of CVA -hypertensive crisis -dyslipidemia -questionable dementia Plan: -events: Patient was not alert and oriented x4. Continues to report they lives with his mother who I found out has quite some time ago. Sister is not willing to take care of the patient according the primary nurse. Social service to assist with discharge planning. -social service for discharge planning. Reviewed APS recommendations. -continue antihypertensives -continue DVT prophylaxis -continue statin -physical therapy Total time spent with patient discussing and formulating plan of care: 35 minutes. This medical document was created using an electronic medical record system with [employer] dictation system. Although this document has been carefully reviewed, there may still be some phonetic and typographical errors. These areas are purely typographical due to imperfections of the software programs, and do not reflect any compromise in the patient's medical care. Plan discussed with: Patient, Other (RN) Date of Service: Jan 10, 2025 Billing Provider: JEANNIE MERA NP Common Visit Codes: [id number] INP/OBS CARE(HIGH) JEANNIE MERA NP Jan 10, 2025 12:52
[2025-01-11] VITALS (8 sets, daily range): BP systolic 112–121; BP diastolic 61–71; PULSE 62–66; RESP 16–20; TEMP 97.7–98.7; O2SAT 92–96
--- NOTE | 2025-01-11 14:06 | DVHPN2 ---
Subjective Patient reports that he was ready to be discharged home and to call his mother. Apparently, the patient's mother quite some time ago. Reviewed: Care Plan, H&P, Labs, Medications, Previous Orders General: Per HPI Objective Vitals Vital Signs Date Time Temp Pulse Resp B/P (MAP) Pulse Ox O2 Delivery O2 Flow Rate FiO2 01/11/25 10:11 112/61 01/11/25 09:00 98.0 62 20 94 98.0 01/11/25 08:00 Room Air* 0 21 Intake/Output Intake and Output 01/11/25 07:00 Intake Total 1826 ml Output Total 1410 ml Balance 416 ml Intake Oral 1826 ml Output Urine Total 1410 ml # Bowel Movements 2 General Appearance: Alert, Oriented X3, Cooperative, No acute distress HEENT: PERRLA Lungs: Clear to auscultation, Normal air movement Cardiovascular: Regular rate, Normal S1, Normal S2 Abdomen: Normal bowel sounds, Soft, No tenderness Extremities: No edema, Other (Left arm contracture) Skin: Dry, Intact Medications Current Medications Medications Dose Ordered Sig/Jennifer Route Start Time Stop Time Status Last Admin Dose Admin Aspirin 81 mg DAILY PO 01/06/25 10:00 01/11/25 10:10 81 MG Atorvastatin Calcium 10 mg HS PO 01/05/25 22:00 01/10/25 21:09 10 MG Lisinopril 10 mg DAILY PO 01/06/25 10:00 01/11/25 10:11 10 MG Ondansetron HCl 4 mg Q4HP PRN IV 01/05/25 19:00 Enoxaparin Sodium 40 mg DAILY SC 01/06/25 10:00 01/11/25 10:11 40 MG Acetaminophen 650 mg Q6HP PRN PO 01/05/25 19:00 Hydralazine HCl 10 mg Q6HP PRN IV 01/07/25 14:15 Laboratory Results Laboratory Tests 01/05/25 11:04 01/06/25 06:01 Urinalysis Test 01/05/25 01:58 Urine Color Light-yellow (Yellow) Urine Clarity Clear (Clear) Urine pH 6.5 (5.0-9.0) Urine Specific [place] 1.014 (1.001-1.035) Urine Protein 2+ (Negative) H Urine Ketones Negative (Negative) Urine Blood Trace /uL (Negative) H Urine Nitrite Negative (Negative) Urine Bilirubin Negative (Negative) Urine Urobilinogen Normal mg/dL (Negative) Urine Leukocyte Esterase Negative /uL (Negative) Urine RBC 1 /hpf (0 - 3) Urine Microscopic WBC 1 /HPF (0-3) Urine Squamous Epithelial Cells Few /hpf (<5) Urine Bacteria Few /hpf (None Seen) H Urine Sperm Present /hpf (None Seen) Urine Glucose Normal mg/dL (Normal) Assessment/Plan Assessment/Plan Impression: -history of CVA -hypertensive crisis -dyslipidemia -questionable dementia Plan: -events: Patient was not alert and oriented x4. Continues to report they lives with his mother who I found out has quite some time ago. Sister is not willing to take care of the patient according the primary nurse. Social service to assist with discharge planning. -social service for discharge planning. Reviewed APS recommendations. -continue antihypertensives -continue DVT prophylaxis -continue statin -physical therapy Total time spent with patient discussing and formulating plan of care: 35 minutes. This medical document was created using an electronic medical record system with [employer] dictation system. Although this document has been carefully reviewed, there may still be some phonetic and typographical errors. These areas are purely typographical due to imperfections of the software programs, and do not reflect any compromise in the patient's medical care. JEANNIE MERA NP Jan 11, 2025 14:06
[2025-01-12] VITALS (8 sets, daily range): BP systolic 101–122; BP diastolic 60–66; PULSE 56–66; RESP 16–19; TEMP 97.4–98; O2SAT 92–96
--- NOTE | 2025-01-12 05:23 | DVHPN2 ---
Subjective Denies any symptoms Reviewed: Care Plan, H&P, Labs, Medications, Previous Orders Changes from previous H/P or p: No Changes General: Per HPI Objective Vitals Vital Signs Date Time Temp Pulse Resp B/P (MAP) Pulse Ox O2 Delivery O2 Flow Rate FiO2 01/12/25 01:00 97.9 57 19 101/62 (75) 93 97.9 01/11/25 08:00 Room Air* 0 21 Intake/Output Intake and Output 01/12/25 07:00 Intake Total 1220 ml Output Total 1201 ml Balance 19 ml Intake Oral 1220 ml Output Urine Total 1200 ml Stool Total 1 ml General Appearance: Alert, Oriented X3, Cooperative, No acute distress HEENT: PERRLA Lungs: Clear to auscultation, Normal air movement Cardiovascular: Regular rate, Normal S1, Normal S2 Abdomen: Normal bowel sounds, Soft, No tenderness Extremities: No edema, Other (Left arm contracture) Skin: Dry, Intact Psych/Mental Status: Mental status NL, Mood NL Medications Current Medications Medications Dose Ordered Sig/Jennifer Route Start Time Stop Time Status Last Admin Dose Admin Aspirin 81 mg DAILY PO 01/06/25 10:00 01/11/25 10:10 81 MG Atorvastatin Calcium 10 mg HS PO 01/05/25 22:00 01/11/25 21:54 10 MG Lisinopril 10 mg DAILY PO 01/06/25 10:00 01/11/25 10:11 10 MG Ondansetron HCl 4 mg Q4HP PRN IV 01/05/25 19:00 Enoxaparin Sodium 40 mg DAILY SC 01/06/25 10:00 01/11/25 10:11 40 MG Acetaminophen 650 mg Q6HP PRN PO 01/05/25 19:00 Hydralazine HCl 10 mg Q6HP PRN IV 01/07/25 14:15 Laboratory Results Laboratory Tests 01/05/25 11:04 01/06/25 06:01 Urinalysis Test 01/05/25 01:58 Urine Color Light-yellow (Yellow) Urine Clarity Clear (Clear) Urine pH 6.5 (5.0-9.0) Urine Specific [place] 1.014 (1.001-1.035) Urine Protein 2+ (Negative) H Urine Ketones Negative (Negative) Urine Blood Trace /uL (Negative) H Urine Nitrite Negative (Negative) Urine Bilirubin Negative (Negative) Urine Urobilinogen Normal mg/dL (Negative) Urine Leukocyte Esterase Negative /uL (Negative) Urine RBC 1 /hpf (0 - 3) Urine Microscopic WBC 1 /HPF (0-3) Urine Squamous Epithelial Cells Few /hpf (<5) Urine Bacteria Few /hpf (None Seen) H Urine Sperm Present /hpf (None Seen) Urine Glucose Normal mg/dL (Normal) Labs and/or images reviewed: Labs reviewed by me, Image(s) reviewed by me Assessment/Plan Assessment/Plan Impression: -history of CVA -hypertensive crisis -dyslipidemia -questionable dementia Plan: -events: No change overnight. -social service for discharge planning. Reviewed APS recommendations. -continue antihypertensives -continue DVT prophylaxis -continue statin -physical therapy Total time spent with patient discussing and formulating plan of care: 35 minutes. This medical document was created using an electronic medical record system with [employer] dictation system. Although this document has been carefully reviewed, there may still be some phonetic and typographical errors. These areas are purely typographical due to imperfections of the software programs, and do not reflect any compromise in the patient's medical care. Plan discussed with: Patient, Other Date of Service: Jan 12, 2025 Billing Provider: JEANNIE MERA NP Common Visit Codes: [id number] INP/OBS CARE(HIGH) JEANNIE MERA NP Jan 12, 2025 05:22
--- NOTE | 2025-01-12 12:10 | DVHPN2 ---
Subjective Denies any symptoms Reviewed: Care Plan, H&P, Labs, Medications, Previous Orders Changes from previous H/P or p: No Changes General: Per HPI Objective Vitals Vital Signs Date Time Temp Pulse Resp B/P (MAP) Pulse Ox O2 Delivery O2 Flow Rate FiO2 01/12/25 09:21 107/60 01/12/25 08:59 97.4 56 18 94 97.4 01/12/25 07:53 Room Air* 0 21 Intake/Output Intake and Output 01/12/25 07:00 Intake Total 1420 ml Output Total 1951 ml Balance -531 ml Intake Oral 1420 ml Output Urine Total 1950 ml Stool Total 1 ml General Appearance: Alert, Oriented X3, Cooperative, No acute distress HEENT: PERRLA Lungs: Clear to auscultation, Normal air movement Cardiovascular: Regular rate, Normal S1, Normal S2 Abdomen: Normal bowel sounds, Soft, No tenderness Extremities: No edema, Other (Left arm contracture) Skin: Dry, Intact Psych/Mental Status: Mental status NL, Mood NL Medications Current Medications Medications Dose Ordered Sig/Jennifer Route Start Time Stop Time Status Last Admin Dose Admin Aspirin 81 mg DAILY PO 01/06/25 10:00 01/12/25 09:34 81 MG Atorvastatin Calcium 10 mg HS PO 01/05/25 22:00 01/11/25 21:54 10 MG Lisinopril 10 mg DAILY PO 01/06/25 10:00 01/11/25 10:11 10 MG Ondansetron HCl 4 mg Q4HP PRN IV 01/05/25 19:00 Enoxaparin Sodium 40 mg DAILY SC 01/06/25 10:00 01/12/25 09:37 40 MG Acetaminophen 650 mg Q6HP PRN PO 01/05/25 19:00 Hydralazine HCl 10 mg Q6HP PRN IV 01/07/25 14:15 Laboratory Results Laboratory Tests 01/05/25 11:04 01/06/25 06:01 Urinalysis Test 01/05/25 01:58 Urine Color Light-yellow (Yellow) Urine Clarity Clear (Clear) Urine pH 6.5 (5.0-9.0) Urine Specific [place] 1.014 (1.001-1.035) Urine Protein 2+ (Negative) H Urine Ketones Negative (Negative) Urine Blood Trace /uL (Negative) H Urine Nitrite Negative (Negative) Urine Bilirubin Negative (Negative) Urine Urobilinogen Normal mg/dL (Negative) Urine Leukocyte Esterase Negative /uL (Negative) Urine RBC 1 /hpf (0 - 3) Urine Microscopic WBC 1 /HPF (0-3) Urine Squamous Epithelial Cells Few /hpf (<5) Urine Bacteria Few /hpf (None Seen) H Urine Sperm Present /hpf (None Seen) Urine Glucose Normal mg/dL (Normal) Labs and/or images reviewed: Labs reviewed by me, Image(s) reviewed by me Assessment/Plan Assessment/Plan Impression: -history of CVA -hypertensive crisis -dyslipidemia -probable dementia Plan: -events: No change overnight. Pain/P on 01/12/2025 -social service for discharge planning. Reviewed APS recommendations. -continue antihypertensives -continue DVT prophylaxis -continue statin -physical therapy Total time spent with patient discussing and formulating plan of care: 35 minutes. This medical document was created using an electronic medical record system with [employer] dictation system. Although this document has been carefully reviewed, there may still be some phonetic and typographical errors. These areas are purely typographical due to imperfections of the software programs, and do not reflect any compromise in the patient's medical care. Plan discussed with: Patient, Other (RN) Date of Service: Jan 12, 2025 Billing Provider: JEANNIE MERA NP Common Visit Codes: [id number] INP/OBS CARE(HIGH) JEANNIE MERA NP Jan 12, 2025 12:10
[2025-01-13] VITALS (7 sets, daily range): BP systolic 109–131; BP diastolic 60–65; PULSE 60–74; RESP 14–18; TEMP 97.6–98.8; O2SAT 93–95
[2025-01-13] MEDS ORDERED: LISI-275 PO (16:07)
[2025-01-13] MEDS ORDERED: ASPI-325 PO (16:07)
[2025-01-13] MEDS ORDERED: ATOR20TA50 PO (16:07)
--- NOTE | 2025-01-13 19:32 | DVHPN2 ---
Subjective in bed resting, oriented x3 Reviewed: Care Plan, H&P, Labs, Medications, Previous Orders Changes from previous H/P or p: No Changes General: Per HPI Objective Vitals Vital Signs Date Time Temp Pulse Resp B/P (MAP) Pulse Ox O2 Delivery O2 Flow Rate FiO2 01/13/25 17:09 98.0 66 18 120/65 (83) 94 98.0 01/13/25 08:06 Room Air* 0 21 Intake/Output Intake and Output 01/13/25 07:00 Intake Total 2970 ml Output Total 1725 ml Balance 1245 ml Intake Oral 2970 ml Output Urine Total 1725 ml # Voids 3 General Appearance: Alert, Oriented X3, Cooperative, No acute distress HEENT: PERRLA Lungs: Clear to auscultation, Normal air movement Cardiovascular: Regular rate, Normal S1, Normal S2 Abdomen: Normal bowel sounds, Soft, No tenderness Extremities: No edema, Other (Left arm contracture) Skin: Dry, Intact Psych/Mental Status: Mental status NL, Mood NL Medications Current Medications Medications Dose Ordered Sig/Jennifer Route Start Time Stop Time Status Last Admin Dose Admin Aspirin 81 mg DAILY PO 01/06/25 10:00 01/13/25 09:28 81 MG Atorvastatin Calcium 10 mg HS PO 01/05/25 22:00 01/11/25 21:54 10 MG Lisinopril 10 mg DAILY PO 01/06/25 10:00 01/13/25 09:29 10 MG Ondansetron HCl 4 mg Q4HP PRN IV 01/05/25 19:00 Enoxaparin Sodium 40 mg DAILY SC 01/06/25 10:00 01/13/25 09:29 40 MG Acetaminophen 650 mg Q6HP PRN PO 01/05/25 19:00 Hydralazine HCl 10 mg Q6HP PRN IV 01/07/25 14:15 Laboratory Results Laboratory Tests 01/05/25 11:04 01/06/25 06:01 Urinalysis Test 01/05/25 01:58 Urine Color Light-yellow (Yellow) Urine Clarity Clear (Clear) Urine pH 6.5 (5.0-9.0) Urine Specific [place] 1.014 (1.001-1.035) Urine Protein 2+ (Negative) H Urine Ketones Negative (Negative) Urine Blood Trace /uL (Negative) H Urine Nitrite Negative (Negative) Urine Bilirubin Negative (Negative) Urine Urobilinogen Normal mg/dL (Negative) Urine Leukocyte Esterase Negative /uL (Negative) Urine RBC 1 /hpf (0 - 3) Urine Microscopic WBC 1 /HPF (0-3) Urine Squamous Epithelial Cells Few /hpf (<5) Urine Bacteria Few /hpf (None Seen) H Urine Sperm Present /hpf (None Seen) Urine Glucose Normal mg/dL (Normal) Assessment/Plan Assessment/Plan -history of CVA -hypertensive crisis -dyslipidemia -probable dementia Plan: -events: No change overnight. Pain/P on 01/12/2025 -social service for discharge planning. Reviewed APS recommendations. -continue antihypertensives -continue DVT prophylaxis -continue statin -physical therapy Total time spent with patient discussing and formulating plan of care: 35 minutes. Plan discussed with: Patient My Orders Orders - CYNDIE MARQUEZ MD Procedure Category Date Status Time Discharge DISCHARGE 01/13/25 Transmitted 16:06 Communication Order ORDERS 01/13/25 Transmitted 17:27 Date of Service: Jan 13, 2025 Billing Provider: CYNDIE MARQUEZ MD Common Visit Codes: [id number] INP/OBS CARE(HIGH) CYNDIE MARQUEZ MD Jan 13, 2025 19:31
[2025-01-14 01:00] VITALS: BP 114/61; PULSE 60; RESP 16; TEMP 97.7; O2SAT 91
[2025-01-14 05:00] VITALS: BP 110/57; PULSE 56; RESP 16; TEMP 97.7; O2SAT 93
[2025-01-14 08:00] VITALS: PULSE 65; RESP 18; O2SAT 96
[2025-01-14 08:30] VITALS: BP 123/64; PULSE 65; RESP 18; TEMP 98.3; O2SAT 96
[2025-01-14 13:48] VITALS: BP 123/64; PULSE 65; RESP 18; TEMP 98.3; O2SAT 96
== END 2025-01-14 14:30 | disposition home or self-care (01) | DRG 305 ==
LOC: EDBD 10:37 → ER 10:37 → OVERFLOW 18:53 → WEST WING 18:58
PROVIDERS: ADMIT Nurse Practitioner Acute Care; ATTEND Nurse Practitioner Acute Care
DX: I16.1 Hypertensive emergency (principal); I69.354 Hemiplegia and hemiparesis following cerebral infarction affecting left non-dominant side; G45.9 Transient cerebral ischemic attack, unspecified; E78.2 Mixed hyperlipidemia; I10 Essential (primary) hypertension; R56.9 Unspecified convulsions; F03.90 Unspecified dementia, unspecified severity, without behavioral disturbance, psychotic disturbance, mood disturbance, and anxiety
CPT/HCPCS: 36415; 70450; 80048; 80061; 81001; 84443; 84484; 85025; 93005; 93306; 97110; 97116; 97163; 97530; 99291; G0378